=== PATIENT | male | born 1980 | race Two or more races ===

== ENCOUNTER 2020-02-03 21:04 | Inpatient (IN) | payer MEDICAID, OTHER ==
[~2020-02-03] VITALS: Ht 165.1 cm; Wt 72.3 kg
[2020-02-03 22:34] LABS: Urine WBC None Seen /hpf (0 - 3)
[2020-02-03 23:09] LABS: Urine Bacteria NONE SEEN /hpf (None Seen); Urine Blood Negative /uL (Negative); Urine Specific Gravity 1.006 (1.001-1.035)
[2020-02-04 00:04] LABS: Hemoglobin 15.2 g/dL (13.5-17.5); Mean Corpuscular Hemoglobin 31.2 pg (28.0-32.0); Mean Corpuscular Volume 94.6 fL (80.0-100.0); Platelet Count (auto) 270 10^3/uL (140-450); Red Blood Cells 4.86 10^6/uL (4.5-5.90); Red Cell Distribution Width 12.9 % (11.8-14.3)
[2020-02-04 00:07] LABS: White Blood Cell 31.1 10^3/uL (4.4-10.8)
[2020-02-04 00:09] LABS: Basophils % (manual) 0 (0.0-2.0); Blast Cells 0; Eosinophils % (manual) 0 (0-7); Metamyelocytes % 0; Myelocytes % 0; Promyelocytes % 0; Reactive Lymphocytes 0
[2020-02-04 00:19] LABS: Albumin 3.9 g/dL (3.4-5.0); Calcium 9.3 mg/dL (8.5-10.1); Potassium 3.2 mmol/L (3.5-5.1)
[2020-02-04 00:21] LABS: BUN/Creatinine Ratio 10.6
[2020-02-04 00:22] LABS: Lactic Acid w/Reflex 2.4 mmol/L (0.4-2.0)
[2020-02-04 00:34] LABS: Bilirubin, Total 1.1 mg/dL (0.2-1.0)
[2020-02-04 00:37] LABS: Band Neutrophils % (manual) 1; Lymphocytes % (manual) 22 (10.0-50.0); Monocytes % (manual) 3 (0-12)
[2020-02-04] MEDS ORDERED: VANCOMYCIN 1GM/250ML 250 ML IV ONE (01:00)
[2020-02-04] MEDS ORDERED: POTASSIUM CHL 20MEQ/100ML 100 ML IV ONE (01:00)
[2020-02-04] MEDS ORDERED: SODIUM CHLORIDE 0.9% 2,200 ML IV ONE (01:00)
[2020-02-04] MEDS ORDERED: PIPERACILLIN-TAZOB 3.375GM 100 ML IV ONE (01:00)
[2020-02-04] MEDS ORDERED: MORPHINE SULFATE 4 MG/ML SYR/VIAL IV ONE (03:45)
[2020-02-04] MEDS ORDERED: DEXTROSE (50%) 50ML SYRG IV PRN (06:00)
[2020-02-04] MEDS ORDERED: LORazepam 0.5 MG TAB PO PRN (06:00)
[2020-02-04] MEDS ORDERED: VANCOMYCIN PER PHARMACY 0 MG IV SCH ×2 (06:00→06:45)
[2020-02-04] MEDS ORDERED: MORPHINE SULF INJ 2 MG/ML SYRINGE 1ML IV PRN (06:00)
[2020-02-04] MEDS ORDERED: METOCLOPRAMIDE HCL 5MG/ml INJ 2ml VIAL IV PRN (06:00)
[2020-02-04] MEDS ORDERED: TEMAZEPAM 15 MG CAP PO PRN (06:00)
[2020-02-04] MEDS ORDERED: DOCUSATE SOD 100 MG CAP PO PRN (06:00)
[2020-02-04 06:41] VITALS: BP 137/80
[2020-02-04] MEDS: ACCU-CHEK COMFORT CURVE STRIP VI SCH ×4 (06:58→23:17)
[2020-02-04] MEDS ORDERED: LAM100T PO (07:05)
[2020-02-04] MEDS: SODIUM CHLORIDE 0.9% 1,000 ML IV SCH ×3 (07:05→21:27)
[2020-02-04] MEDS ORDERED: LAMO150T2 PO (07:05)
[2020-02-04] MEDS ORDERED: PHE100C PO (07:05)
[2020-02-04] MEDS: metroNIDAZOLE 500MG/100ML 100 ML IV SCH ×3 (07:22→21:26)
[2020-02-04] MEDS: ONDANSETRON HCL 4 MG/2 ML VIAL IV PRN (07:23)
[2020-02-04] MEDS: InsuLIN REG 1unit/0.01ml Soln (100units/ml) SC SCH ×4 (07:24→23:17)
[2020-02-04] MEDS: HYDROcodone-ACET 5/325MG TAB PO PRN (08:24)
[2020-02-04 09:00] VITALS: BP 137/80
[2020-02-04] MEDS ORDERED: levoFLOXacin 500MG 100 ML IV ONE (11:15)
[2020-02-04] MEDS ORDERED: PANTOPRAZOLE 40 MG/10 ML VIAL INJ IV ONE (11:15)
[2020-02-04 11:32] LABS: INR 1.08 (0.9-1.15); Partial Thromboplastin Time 29.9 sec (23.0-31.2)
[2020-02-04] MEDS: MORPHINE SULFATE 4 MG/ML SYR/VIAL IV PRN (11:45)
[2020-02-04 13:00] VITALS: BP 110/69
[2020-02-04] MEDS: PHENYTOIN SODIUM 100 MG CAP PO SCH ×2 (13:47→21:26)
[2020-02-04] MEDS: lamoTRIgine 100 MG TAB PO SCH ×2 (13:48→21:26)
[2020-02-04] MEDS ORDERED: VANCOMYCIN 1GM/250ML 250 ML IV SCH (14:00)
[2020-02-04 17:00] VITALS: BP 130/87
[2020-02-04] MEDS: ACETAMINOPHEN 325 MG TAB PO PRN (21:27)
[2020-02-04 22:00] VITALS: BP 134/82
[2020-02-05 05:00] VITALS: BP 133/80
[2020-02-05] MEDS: lamoTRIgine 100 MG TAB PO SCH ×3 (05:14→21:08)
[2020-02-05] MEDS: PHENYTOIN SODIUM 100 MG CAP PO SCH ×3 (05:14→21:08)
[2020-02-05] MEDS: metroNIDAZOLE 500MG/100ML 100 ML IV SCH ×3 (05:14→21:07)
[2020-02-05] MEDS: ACETAMINOPHEN 325 MG TAB PO PRN ×3 (05:14→22:52)
[2020-02-05] MEDS: ACCU-CHEK COMFORT CURVE STRIP VI SCH ×4 (05:25→23:14)
[2020-02-05] MEDS: InsuLIN REG 1unit/0.01ml Soln (100units/ml) SC SCH ×4 (05:25→23:14)
[2020-02-05 06:16] LABS: Basophils # (auto) 0 10 ^3/uL (0-0.2); Basophils % (auto) 0.1 % (0.0-2.0); Eosinophils # (auto) 0.1 10 ^3/uL (0-0.8); Eosinophils % (auto) 0.4 % (0.0-7.0); Hematocrit 40.4 % (41.0-53.0); Hemoglobin 13.7 g/dL (13.5-17.5); Lymphocytes # (auto) 1.1 10 ^3/uL (0.4-5.4); Mean Corpuscular Hemoglobin 32.1 pg (28.0-32.0); Mean Corpuscular Hgb Conc. 33.9 g/dL (32.0-36.0); Mean Corpuscular Volume 94.9 fL (80.0-100.0); Monocytes # (auto) 1.5 10 ^3/uL (0-1.3); Monocytes % (auto) 6.8 % (0.0-12.0); Neutrophils # (auto) 18.7 10 ^3/uL (1.6-8.6); Neutrophils % (auto) 87.7 % (37.0-80.0); Platelet Count (auto) 241 10^3/uL (140-450); Red Blood Cells 4.26 10^6/uL (4.5-5.90); Red Cell Distribution Width 12.9 % (11.8-14.3); White Blood Cell 21.3 10^3/uL (4.4-10.8)
[2020-02-05 06:30] LABS: Calcium 8.7 mg/dL (8.5-10.1); Potassium 3.4 mmol/L (3.5-5.1)
[2020-02-05 09:00] VITALS: BP 114/68
[2020-02-05] MEDS: levoFLOXacin 500MG 100 ML IV SCH (10:22)
[2020-02-05] MEDS: PANTOPRAZOLE 40 MG/10 ML VIAL INJ IV SCH (10:22)
[2020-02-05] MEDS: SODIUM CHLORIDE 0.9% 1,000 ML IV SCH ×2 (12:16→20:20)
[2020-02-05 13:00] VITALS: BP 114/73
[2020-02-05 16:51] VITALS: BP 119/67
[2020-02-05] MEDS: MORPHINE SULFATE 4 MG/ML SYR/VIAL IV PRN (21:59)
[2020-02-05] MEDS: ONDANSETRON HCL 4 MG/2 ML VIAL IV PRN (21:59)
[2020-02-05 22:00] VITALS: BP 124/76
[2020-02-05] MEDS ORDERED: LORazepam 2MG/ML-1ML VIAL IV PRN ×2 (23:30)
[2020-02-06 05:00] VITALS: BP 122/71
[2020-02-06] MEDS: metroNIDAZOLE 500MG/100ML 100 ML IV SCH ×3 (05:14→22:04)
[2020-02-06] MEDS: PHENYTOIN SODIUM 100 MG CAP PO SCH ×3 (05:14→22:04)
[2020-02-06] MEDS: ACCU-CHEK COMFORT CURVE STRIP VI SCH ×3 (05:15→17:14)
[2020-02-06] MEDS: SODIUM CHLORIDE 0.9% 1,000 ML IV SCH ×2 (05:15→17:15)
[2020-02-06] MEDS: lamoTRIgine 100 MG TAB PO SCH ×3 (05:15→22:04)
[2020-02-06] MEDS: InsuLIN REG 1unit/0.01ml Soln (100units/ml) SC SCH ×3 (05:15→17:14)
[2020-02-06 09:00] VITALS: BP 133/83
[2020-02-06] MEDS: PANTOPRAZOLE 40 MG/10 ML VIAL INJ IV SCH (09:03)
[2020-02-06] MEDS: levoFLOXacin 500MG 100 ML IV SCH (09:03)
[2020-02-06 13:00] VITALS: BP 133/83
[2020-02-06 17:00] VITALS: BP 127/86
[2020-02-06 22:10] VITALS: BP 125/84
[2020-02-07] MEDS: ACCU-CHEK COMFORT CURVE STRIP VI SCH ×4 (00:12→18:00)
[2020-02-07 05:00] VITALS: BP 126/78
[2020-02-07] MEDS: InsuLIN REG 1unit/0.01ml Soln (100units/ml) SC SCH ×4 (06:00→18:00)
[2020-02-07] MEDS: lamoTRIgine 100 MG TAB PO SCH ×3 (06:03→21:49)
[2020-02-07] MEDS: PHENYTOIN SODIUM 100 MG CAP PO SCH ×2 (06:03→14:00)
[2020-02-07] MEDS: metroNIDAZOLE 500MG/100ML 100 ML IV SCH ×3 (06:03→21:49)
[2020-02-07 07:11] LABS: Basophils # (auto) 0 10 ^3/uL (0-0.2); Basophils % (auto) 0.3 % (0.0-2.0); Eosinophils # (auto) 0.2 10 ^3/uL (0-0.8); Eosinophils % (auto) 2.3 % (0.0-7.0); Hematocrit 38.7 % (41.0-53.0); Hemoglobin 13.2 g/dL (13.5-17.5); Lymphocytes # (auto) 1.5 10 ^3/uL (0.4-5.4); Lymphocytes % (auto) 14.6 % (10.0-50.0); Mean Corpuscular Hemoglobin 32.3 pg (28.0-32.0); Mean Corpuscular Hgb Conc. 34.1 g/dL (32.0-36.0); Mean Corpuscular Volume 94.7 fL (80.0-100.0); Monocytes # (auto) 0.7 10 ^3/uL (0-1.3); Monocytes % (auto) 6.9 % (0.0-12.0); Neutrophils % (auto) 75.9 % (37.0-80.0); Platelet Count (auto) 275 10^3/uL (140-450); Red Blood Cells 4.08 10^6/uL (4.5-5.90); Red Cell Distribution Width 12.9 % (11.8-14.3); White Blood Cell 10.5 10^3/uL (4.4-10.8)
[2020-02-07 08:00] VITALS: BP 125/79
[2020-02-07 08:40] VITALS: BP 125/79
[2020-02-07] MEDS: PANTOPRAZOLE 40 MG/10 ML VIAL INJ IV SCH (09:58)
[2020-02-07] MEDS: levoFLOXacin 500MG 100 ML IV SCH (09:59)
[2020-02-07] MEDS: SODIUM CHLORIDE 0.9% 1,000 ML IV SCH ×2 (12:00→13:54)
[2020-02-07 12:07] LABS: Albumin 2.6 g/dL (3.4-5.0); Bilirubin, Total 0.5 mg/dL (0.2-1.0); Calcium 8.4 mg/dL (8.5-10.1); Total Protein 6.8 g/dL (6.4-8.2)
[2020-02-07 12:29] VITALS: BP 123/59
[2020-02-07 13:44] LABS: Basophils # (auto) 0 10 ^3/uL (0-0.2); Basophils % (auto) 0.3 % (0.0-2.0); Eosinophils # (auto) 0.1 10 ^3/uL (0-0.8); Eosinophils % (auto) 1.7 % (0.0-7.0); Hemoglobin 13.7 g/dL (13.5-17.5); Lymphocytes # (auto) 1.1 10 ^3/uL (0.4-5.4); Lymphocytes % (auto) 13.7 % (10.0-50.0); Mean Corpuscular Hemoglobin 32.7 pg (28.0-32.0); Mean Corpuscular Volume 93.3 fL (80.0-100.0); Monocytes # (auto) 0.6 10 ^3/uL (0-1.3); Monocytes % (auto) 7.6 % (0.0-12.0); Neutrophils # (auto) 6.1 10 ^3/uL (1.6-8.6); Neutrophils % (auto) 76.7 % (37.0-80.0); Platelet Count (auto) 299 10^3/uL (140-450); Red Blood Cells 4.18 10^6/uL (4.5-5.90); Red Cell Distribution Width 12.8 % (11.8-14.3)
[2020-02-07 13:55] LABS: BUN/Creatinine Ratio 15.4
[2020-02-07] MEDS ORDERED: POTASSIUM CHL 20MEQ/100ML 100 ML IV ONE (14:30)
[2020-02-07] MEDS ORDERED: BUPIVACAINE 0.25% INJ 50ML VIAL ONE (15:33)
[2020-02-07] MEDS ORDERED: BUPIVACAINE HCL 50 ML ONE (15:33)
[2020-02-07] MEDS ORDERED: LIDOCAINE 1% HCL (LOCAL ANESTH.) INJ 20ML MDV ONE (15:45)
[2020-02-07] MEDS ORDERED: CIPROFLOXACIN 400MG/200ML 200 ML IV ONE (16:10)
[2020-02-07] MEDS ORDERED: MIDAZOLAM HCL 1MG/1ML-2 ML VIAL ONE (16:12)
[2020-02-07] MEDS ORDERED: SUCCINYLCHOLINE CHLORIDE 20 MG/ML 10ML VIAL IV ONE (16:13)
[2020-02-07] MEDS ORDERED: LIDOCAINE 1% (LOCAL ANESTH.) PF 5ml SDV ONE (16:13)
[2020-02-07] MEDS ORDERED: ROCURONIUM 10MG/ML 10ML VIAL IV ONE (16:14)
[2020-02-07] MEDS ORDERED: METOCLOPRAMIDE HCL 5MG/ml INJ 2ml VIAL ONE (16:18)
[2020-02-07] MEDS ORDERED: fentaNYL CITRATE 100 MCG/2 ML VL ONE (16:25)
[2020-02-07] MEDS ORDERED: ONDANSETRON HCL 4 MG/2 ML VIAL IV PRN (16:30)
[2020-02-07] MEDS ORDERED: HYDROmorphone HCL 2 MG/ML VL IV PRN ×2 (16:30)
[2020-02-07] MEDS ORDERED: NALOXONE HCL 0.4 MG/ML VIAL IV PRN (16:30)
[2020-02-07] MEDS ORDERED: KETOROLAC TROMETH 30 MG/ML 1ML VIAL ONE (17:25)
[2020-02-07 17:30] VITALS: BP 126/82
[2020-02-07] MEDS ORDERED: NEOSTIGMINE 1 MG/ML INJ (10mg/10ML VIAL) ONE (17:31)
[2020-02-07] MEDS ORDERED: GLYCOPYRROLATE 0.2 MG/ML 1ML VIAL ONE (17:31)
[2020-02-07] MEDS: PHENYTOIN SODIUM 50 MG/ML 2ML VIAL IV SCH (21:49)
[2020-02-07 22:00] VITALS: BP 130/89
[2020-02-08 05:00] VITALS: BP 131/81
[2020-02-08] MEDS: PHENYTOIN SODIUM 50 MG/ML 2ML VIAL IV SCH ×3 (06:03→22:21)
[2020-02-08] MEDS: metroNIDAZOLE 500MG/100ML 100 ML IV SCH ×3 (06:04→22:22)
[2020-02-08] MEDS: lamoTRIgine 100 MG TAB PO SCH ×3 (06:04→22:22)
[2020-02-08] MEDS: HYDROcodone-ACET 5/325MG TAB PO PRN (06:04)
[2020-02-08 08:00] VITALS: BP 128/54
[2020-02-08 09:00] VITALS: BP 128/54
[2020-02-08] MEDS: SODIUM CHLORIDE 0.9% 1,000 ML IV SCH ×3 (09:54→22:22)
[2020-02-08 11:18] LABS: Basophils # (auto) 0 10 ^3/uL (0-0.2); Basophils % (auto) 0.1 % (0.0-2.0); Eosinophils # (auto) 0 10 ^3/uL (0-0.8); Eosinophils % (auto) 0.3 % (0.0-7.0); Hemoglobin 12.7 g/dL (13.5-17.5); Lymphocytes # (auto) 0.9 10 ^3/uL (0.4-5.4); Mean Corpuscular Hemoglobin 31.6 pg (28.0-32.0); Mean Corpuscular Hgb Conc. 33.3 g/dL (32.0-36.0); Mean Corpuscular Volume 94.9 fL (80.0-100.0); Monocytes # (auto) 1.1 10 ^3/uL (0-1.3); Monocytes % (auto) 8.8 % (0.0-12.0); Neutrophils # (auto) 10.5 10 ^3/uL (1.6-8.6); Neutrophils % (auto) 83.8 % (37.0-80.0); Platelet Count (auto) 286 10^3/uL (140-450); Red Blood Cells 4.01 10^6/uL (4.5-5.90); Red Cell Distribution Width 12.5 % (11.8-14.3); White Blood Cell 12.6 10^3/uL (4.4-10.8)
[2020-02-08 11:32] LABS: Albumin 2.5 g/dL (3.4-5.0); Calcium 7.9 mg/dL (8.5-10.1)
[2020-02-08 11:36] LABS: BUN/Creatinine Ratio 9.3; Bilirubin, Total 0.6 mg/dL (0.2-1.0); Total Protein 6.4 g/dL (6.4-8.2)
[2020-02-08] MEDS: levoFLOXacin 500MG 100 ML IV SCH (11:46)
[2020-02-08] MEDS: PANTOPRAZOLE 40 MG/10 ML VIAL INJ IV SCH (11:46)
[2020-02-08 13:00] VITALS: BP 144/52
[2020-02-08 16:16] VITALS: BP 126/75
[2020-02-08] MEDS: POTASSIUM CHL 20MEQ/100ML 100 ML IV SCH ×2 (17:55→20:04)
[2020-02-08 22:00] VITALS: BP 126/80
[2020-02-09 05:00] VITALS: BP 123/61
[2020-02-09 06:15] LABS: Basophils # (auto) 0 10 ^3/uL (0-0.2); Basophils % (auto) 0.4 % (0.0-2.0); Eosinophils # (auto) 0.3 10 ^3/uL (0-0.8); Eosinophils % (auto) 2.4 % (0.0-7.0); Hematocrit 36.7 % (41.0-53.0); Lymphocytes # (auto) 1.6 10 ^3/uL (0.4-5.4); Lymphocytes % (auto) 13.7 % (10.0-50.0); Mean Corpuscular Hemoglobin 32.9 pg (28.0-32.0); Mean Corpuscular Hgb Conc. 35.3 g/dL (32.0-36.0); Mean Corpuscular Volume 93.1 fL (80.0-100.0); Monocytes # (auto) 1.1 10 ^3/uL (0-1.3); Neutrophils # (auto) 8.9 10 ^3/uL (1.6-8.6); Neutrophils % (auto) 74.5 % (37.0-80.0); Nucleated Red Blood Cells % 0.1 %; Platelet Count (auto) 292 10^3/uL (140-450); Red Blood Cells 3.94 10^6/uL (4.5-5.90); Red Cell Distribution Width 12.4 % (11.8-14.3)
[2020-02-09] MEDS: PHENYTOIN SODIUM 50 MG/ML 2ML VIAL IV SCH (06:28)
[2020-02-09] MEDS: lamoTRIgine 100 MG TAB PO SCH ×3 (06:28→21:15)
[2020-02-09] MEDS: metroNIDAZOLE 500MG/100ML 100 ML IV SCH ×3 (06:29→21:14)
[2020-02-09 06:45] LABS: Albumin 2.6 g/dL (3.4-5.0); BUN/Creatinine Ratio 7.4; Bilirubin, Total 0.4 mg/dL (0.2-1.0); Total Protein 6.6 g/dL (6.4-8.2)
[2020-02-09 06:53] LABS: Potassium 2.9 mmol/L (3.5-5.1)
[2020-02-09 08:00] VITALS: BP 139/59
[2020-02-09 09:00] VITALS: BP 139/59
[2020-02-09] MEDS: levoFLOXacin 500MG 100 ML IV SCH (09:34)
[2020-02-09] MEDS: PANTOPRAZOLE 40 MG/10 ML VIAL INJ IV SCH (09:34)
[2020-02-09 13:00] VITALS: BP 112/73
[2020-02-09] MEDS: SODIUM CHLORIDE 0.9% 1,000 ML IV SCH ×2 (13:04→16:08)
[2020-02-09] MEDS: POTASSIUM CHL 20MEQ/100ML 100 ML IV SCH ×3 (13:05→21:14)
[2020-02-09 16:40] VITALS: BP 115/75
[2020-02-09] MEDS ORDERED: POTASSIUM CHL 20MEQ/100ML 100 ML IV ONE (21:08)
[2020-02-09 22:00] VITALS: BP 115/85
[2020-02-09] MEDS ORDERED: PHENYTOIN SODIUM 100 MG CAP PO SCH (22:00)
[2020-02-10] MEDS: SODIUM CHLORIDE 0.9% 1,000 ML IV SCH ×2 (02:12→11:04)
[2020-02-10 05:00] VITALS: BP 120/71
[2020-02-10 06:03] LABS: Basophils # (auto) 0.1 10 ^3/uL (0-0.2); Basophils % (auto) 0.6 % (0.0-2.0); Eosinophils # (auto) 0.5 10 ^3/uL (0-0.8); Eosinophils % (auto) 4.9 % (0.0-7.0); Hematocrit 36.5 % (41.0-53.0); Hemoglobin 12.8 g/dL (13.5-17.5); Lymphocytes % (auto) 18.6 % (10.0-50.0); Mean Corpuscular Hemoglobin 32.9 pg (28.0-32.0); Mean Corpuscular Volume 93.8 fL (80.0-100.0); Monocytes # (auto) 0.8 10 ^3/uL (0-1.3); Monocytes % (auto) 7.8 % (0.0-12.0); Neutrophils # (auto) 7.3 10 ^3/uL (1.6-8.6); Neutrophils % (auto) 68.1 % (37.0-80.0); Platelet Count (auto) 315 10^3/uL (140-450); Red Blood Cells 3.89 10^6/uL (4.5-5.90); Red Cell Distribution Width 12.8 % (11.8-14.3); White Blood Cell 10.7 10^3/uL (4.4-10.8)
[2020-02-10 06:23] LABS: Potassium 3.1 mmol/L (3.5-5.1)
[2020-02-10 06:33] LABS: Albumin 2.6 g/dL (3.4-5.0); BUN/Creatinine Ratio 9.6; Bilirubin, Total 0.3 mg/dL (0.2-1.0); Calcium 8.2 mg/dL (8.5-10.1); Total Protein 6.6 g/dL (6.4-8.2)
[2020-02-10] MEDS: lamoTRIgine 100 MG TAB PO SCH (06:40)
[2020-02-10] MEDS: metroNIDAZOLE 500MG/100ML 100 ML IV SCH (06:40)
[2020-02-10 09:17] VITALS: BP 116/75
[2020-02-10] MEDS: PANTOPRAZOLE 40 MG/10 ML VIAL INJ IV SCH (09:35)
[2020-02-10] MEDS: levoFLOXacin 500MG 100 ML IV SCH (09:38)
[2020-02-10 12:10] VITALS: BP 116/75
[2020-02-10 12:47] VITALS: BP 126/84
== END 2020-02-10 13:40 | disposition home or self-care (01) | DRG 710 ==
LOC: ER 21:04 → EDBD 21:04 → WEST WING 21:05 → ER 02-04 06:32
PROVIDERS: ADMIT Hospitalist; ATTEND Family Medicine
PROC: 0D9W40Z Drainage of Peritoneum with Drainage Device, Percutaneous Endoscopic Approach (ICD-10-PCS; 2020-02-07)
PROC: 0FT44ZZ Resection of Gallbladder, Percutaneous Endoscopic Approach (ICD-10-PCS; principal; 2020-02-07 16:10)
DX: A41.9 Sepsis, unspecified organism (principal); K65.1 Peritoneal abscess; G40.209 Localization-related (focal) (partial) symptomatic epilepsy and epileptic syndromes with complex partial seizures, not intractable, without status epilepticus; E11.9 Type 2 diabetes mellitus without complications; E87.6 Hypokalemia; F17.210 Nicotine dependence, cigarettes, uncomplicated; I10 Essential (primary) hypertension; K66.0 Peritoneal adhesions (postprocedural) (postinfection); Z20.828 Contact with and (suspected) exposure to other viral communicable diseases; Z79.899 Other long term (current) drug therapy; Z82.49 Family history of ischemic heart disease and other diseases of the circulatory system; Z88.1 Allergy status to other antibiotic agents; K80.00 Calculus of gallbladder with acute cholecystitis without obstruction
CPT/HCPCS: 36415; 70551; 71045; 74176; 74181; 76705; 80048; 80053; 80185; 81001; 82150; 82542; 82962; 83036; 83605; 83690; 85007; 85025; 85027; 85610; 85730; 86850; 86900; 86901; 87040; 87086; 87426; 95819; 96361; 96365; 96367; 96375; C9113; G0378; J0330; J1815; J1885; J1956; J2001; J2250; J2405; J2543; J3480; J3490

== ENCOUNTER 2023-02-20 13:50 | Inpatient (IN) | payer MEDICAID ==
[~2023-02-20] VITALS: Ht 165.1 cm; Wt 74.5 kg
[~2023-02-20 13:50] MED LIST: LAM100T PO; LAMO150T2 PO; PHEN1CAP60 PO
[2023-02-20 14:29] LABS: Basophils # (auto) 0.1 10 ^3/uL (0-0.2); Basophils % (auto) 0.8 % (0.0-2.0); Eosinophils # (auto) 0.3 10 ^3/uL (0-0.8); Eosinophils % (auto) 3.4 % (0.0-7.0); Hematocrit 51.1 % (41.0-53.0); Hemoglobin 17.1 g/dL (13.5-17.5); Lymphocytes # (auto) 1.8 10 ^3/uL (0.4-5.4); Lymphocytes % (auto) 18.2 % (10.0-50.0); Mean Corpuscular Hemoglobin 31.4 pg (28.0-32.0); Mean Corpuscular Hgb Conc. 33.5 g/dL (32.0-36.0); Mean Corpuscular Volume 93.7 fL (80.0-100.0); Monocytes # (auto) 0.8 10 ^3/uL (0-1.3); Monocytes % (auto) 8.2 % (0.0-12.0); Neutrophils # (auto) 6.9 10 ^3/uL (1.6-8.6); Neutrophils % (auto) 69.4 % (37.0-80.0); Nucleated Red Blood Cells % 0.1 %; Red Blood Cells 5.45 10^6/uL (4.5-5.90); Red Cell Distribution Width 13.3 % (11.8-14.3); White Blood Cell 9.9 10^3/uL (4.4-10.8)
[2023-02-20 15:03] LABS: Alanine Aminotransferase 34 U/L (7-40); Albumin 4.7 g/dL (3.2-4.8); Alkaline Phosphatase 208 U/L (46-116); Aspartate Aminotransferase 15 U/L (13-40); BUN/Creatinine Ratio 11.4 (10.0-20.0); Bilirubin, Total 0.4 mg/dL (0.2-1.0); Blood Urea Nitrogen 14 mg/dL (9-23); Calcium 10.2 mg/dL (8.7-10.4); Chloride 105 mmol/L (98-107); Glucose 126 mg/dL (74-106); Potassium 4.3 mmol/L (3.5-5.1); Sodium 139 mmol/L (136-145); Total Protein 8.1 g/dL (5.7-8.2)
[2023-02-20] MEDS ORDERED: SODIUM CHLORIDE 0.9% 1,000 ML IV ONE (15:30)
[2023-02-20 17:08] LABS: Urine Bacteria NONE SEEN /hpf (None Seen); Urine Blood Negative /uL (Negative); Urine Clarity Clear (Clear); Urine Color Yellow (Yellow); Urine Hyaline Cast FEW /lpf (0 - 2); Urine Mucus FEW (None Seen); Urine Protein, UAD 1+ (Negative); Urine Specific Gravity 1.022 (1.001-1.035); Urine Urobilinogen Normal (Negative); Urine WBC 2 /hpf (0 - 3); Urine pH 6.5 (5.0-8.0)
[2023-02-20 17:19] LABS: Amphetamine Screen, Urine Neg (NEGATIVE); Barbiturate Scree,Urine Neg (NEGATIVE); Benzodiazephine Screen, Urine Neg (NEGATIVE); Cocaine Screen, Urine Neg (NEGATIVE); Opiate Scree,Urine Neg (NEGATIVE)
[2023-02-20 17:20] LABS: Cannabinoid Screen, Urine Neg (NEGATIVE); Phencyclidine Screen, Urine Neg (NEGATIVE)
[2023-02-20] MEDS ORDERED: HYDROcodone-ACET 5/325MG TAB PO PRN (21:45)
[2023-02-20] MEDS ORDERED: ONDANSETRON HCL 4 MG/2 ML VIAL IV PRN (21:45)
[2023-02-20] MEDS ORDERED: LORazepam 2MG/ML-1ML VIAL IV PRN (21:45)
[2023-02-20] MEDS ORDERED: ACETAMINOPHEN 325 MG TAB PO PRN (21:45)
[2023-02-20] MEDS ORDERED: DOCUSATE SOD 100 MG CAP PO PRN (21:45)
[2023-02-20] MEDS ORDERED: MECLIZINE HCL 25 MG TAB PO PRN (21:45)
[2023-02-20] MEDS ORDERED: lamoTRIgine 100 MG TAB PO SCH (22:00)
[2023-02-20] MEDS ORDERED: MORPHINE SULFATE INJ 2 MG/ml SYRG IV PRN (22:15)
[2023-02-20] MEDS ORDERED: NITROGLYCERIN 0.4 MG SL TAB SL PRN (22:15)
[2023-02-20] MEDS: SODIUM CHLOR 0.9% PF (SALINE LOCK) 10ML VIAL/SYR IV SCH (23:31)
[2023-02-21 04:43] VITALS: BP 125/87; PULSE 78; RESP 17; TEMP 98.1; O2SAT 98
[2023-02-21 04:55] LABS: Basophils # (auto) 0.1 10 ^3/uL (0-0.2); Basophils % (auto) 0.8 % (0.0-2.0); Eosinophils # (auto) 0.6 10 ^3/uL (0-0.8); Eosinophils % (auto) 5.7 % (0.0-7.0); Hematocrit 46.3 % (41.0-53.0); Hemoglobin 15.6 g/dL (13.5-17.5); Lymphocytes # (auto) 2.4 10 ^3/uL (0.4-5.4); Lymphocytes % (auto) 21.2 % (10.0-50.0); Mean Corpuscular Hemoglobin 31.7 pg (28.0-32.0); Mean Corpuscular Hgb Conc. 33.8 g/dL (32.0-36.0); Mean Corpuscular Volume 93.8 fL (80.0-100.0); Monocytes % (auto) 9.3 % (0.0-12.0); Nucleated Red Blood Cells % 0.1 %; Red Blood Cells 4.94 10^6/uL (4.5-5.90); Red Cell Distribution Width 13.2 % (11.8-14.3); White Blood Cell 11.1 10^3/uL (4.4-10.8)
[2023-02-21 05:41] LABS: Alanine Aminotransferase 28 U/L (7-40); Albumin 4.4 g/dL (3.2-4.8); Alkaline Phosphatase 186 U/L (46-116); Anion Gap 8.5 (5-15); Aspartate Aminotransferase 19 U/L (13-40); BUN/Creatinine Ratio 9.5 (10.0-20.0); Blood Urea Nitrogen 11 mg/dL (9-23); Calcium 9.5 mg/dL (8.7-10.4); Carbon Dioxide 23.5 mmol/L (20-30); Chloride 105 mmol/L (98-107); Glucose 141 mg/dL (74-106); Potassium 4.3 mmol/L (3.5-5.1); Sodium 137 mmol/L (136-145)
[2023-02-21 05:42] LABS: Bilirubin, Total 0.6 mg/dL (0.2-1.0); Total Protein 7.9 g/dL (5.7-8.2)
[2023-02-21] MEDS: SODIUM CHLOR 0.9% PF (SALINE LOCK) 10ML VIAL/SYR IV SCH (06:07)
== END 2023-02-21 07:35 | disposition left against medical advice (07) | DRG 111 ==
LOC: ER 13:50 → OVERFLOW 22:18
PROVIDERS: ADMIT Nurse Practitioner Family; ATTEND Nurse Practitioner Family
DX: R42 Dizziness and giddiness (principal); G40.909 Epilepsy, unspecified, not intractable, without status epilepticus; Z88.0 Allergy status to penicillin; R26.81 Unsteadiness on feet; R53.1 Weakness; Z53.29 Procedure and treatment not carried out because of patient's decision for other reasons
CPT/HCPCS: 36415; 70450; 72131; 80053; 80307; 81001; 84484; 85025; 93005; 93925; G0378